=== PATIENT | male | born 1960 | race Caucasian/White ===

== ENCOUNTER → 2020-10-10 09:15 | Outpatient (BNVA) | payer BC, SELFPAY | PROVIDERS: PCP Internal Medicine; Referring Provider Internal Medicine; Visit Provider Urology | DX: C61 Malignant neoplasm of prostate (principal); N39.0 Urinary tract infection, site not specified; N35.919 Unspecified urethral stricture, male, unspecified site | CPT/HCPCS: 81003; 84153; 87077; 87086; 87184 ==

== ENCOUNTER → 2021-01-09 10:10 | Outpatient (BNVA) | payer BC, SELFPAY | PROVIDERS: PCP Internal Medicine; Visit Provider Urology | DX: C61 Malignant neoplasm of prostate (principal); N39.0 Urinary tract infection, site not specified; N99.114 Postprocedural urethral stricture, male, unspecified | CPT/HCPCS: 81003; 84153 ==

== ENCOUNTER → 2021-07-12 10:36 | Outpatient (BNVA) | payer BC, SELFPAY | PROVIDERS: PCP Internal Medicine; Visit Provider Urology | DX: N39.0 Urinary tract infection, site not specified (principal); R97.20 Elevated prostate specific antigen [PSA]; C61 Malignant neoplasm of prostate; N99.114 Postprocedural urethral stricture, male, unspecified | CPT/HCPCS: 81003; 84153; 87077; 87086; 87184 ==

== ENCOUNTER → 2021-09-07 09:19 | Outpatient (BNVA) | payer BC, SELFPAY | PROVIDERS: PCP Internal Medicine; Visit Provider Internal Medicine | DX: E78.00 Pure hypercholesterolemia, unspecified (principal) | CPT/HCPCS: 80053; 80061; 84443; 85025 ==

== ENCOUNTER → 2021-11-17 11:44 | Outpatient (BNVA) | payer BC, SELFPAY | PROVIDERS: PCP Internal Medicine; Visit Provider Nurse Practitioner Family | DX: Z20.822 Contact with and (suspected) exposure to COVID-19 (principal); J06.9 Acute upper respiratory infection, unspecified | CPT/HCPCS: 87635 ==

== ENCOUNTER 2022-02-08 12:27 | Outpatient (CLI) | payer BC, SELFPAY | END 2022-02-08 12:28 | disposition home or self-care (01) | LOC: LAB 12:28 | PROVIDERS: PCP Internal Medicine; Visit Provider Urology | DX: R97.20 Elevated prostate specific antigen [PSA] (principal) | CPT/HCPCS: 81003; 84153 ==

== ENCOUNTER → 2022-08-07 09:24 | Outpatient (BNVA) | payer BC, SELFPAY | PROVIDERS: PCP Internal Medicine; Visit Provider Urology | DX: C61 Malignant neoplasm of prostate (principal) | CPT/HCPCS: 84153 ==

== ENCOUNTER 2023-12-26 15:59 | Outpatient (CLI) | payer BC, SELFPAY ==
--- NOTE | 2023-12-26 17:06 | XR_ITS ---
WS: [id number] Exam: XR hip RT 1V wo/w pel [id number] Date/Time of Exam: 12/26/2023 5:13 PM Reason For Exam: RIGHT GROIN PAIN No fracture or dislocation. Advanced osteoarthritis with [id number] articulation. Soft tissues are unremarkable. IMPRESSION: 1. Advanced DJD. No fracture.
== END 2023-12-26 16:00 | disposition home or self-care (01) ==
LOC: RAD 16:02
PROVIDERS: PCP Internal Medicine; Visit Provider Internal Medicine
DX: M16.11 Unilateral primary osteoarthritis, right hip (principal); R10.31 Right lower quadrant pain
CPT/HCPCS: 73501

== ENCOUNTER 2024-05-18 09:18 | Outpatient (CLI) | payer BC, SELFPAY | END 2024-05-18 09:19 | disposition home or self-care (01) | LOC: LAB 09:22 | PROVIDERS: PCP Internal Medicine; Visit Provider Urology | DX: C61 Malignant neoplasm of prostate (principal) | CPT/HCPCS: 36415; 84153 ==

== ENCOUNTER 2024-11-16 11:23 | Outpatient (CLI) | payer BC, SELFPAY | END 2024-11-16 11:24 | disposition home or self-care (01) | LOC: LAB 11:27 | PROVIDERS: PCP Internal Medicine; Visit Provider Nurse Practitioner Family | DX: Z85.46 Personal history of malignant neoplasm of prostate (principal) | CPT/HCPCS: 36415; 84153 ==

== ENCOUNTER 2025-05-21 07:01 | Outpatient (CLI) | payer BC, SELFPAY ==
[2025-05-21 07:51] LABS: Prostate Specific Antigen 1.500 ng/mL (0-4)
== END 2025-05-21 07:02 | disposition home or self-care (01) ==
LOC: LAB 07:02
PROVIDERS: PCP Internal Medicine; Visit Provider Nurse Practitioner Family
DX: Z85.46 Personal history of malignant neoplasm of prostate (principal)
CPT/HCPCS: 36415; 84153